=== PATIENT | male | born 1960 | race Two or more races ===

== ENCOUNTER 2017-06-04 13:24 | Inpatient (IN) | payer OTHER ==
[~2017-06-04] VITALS: Ht 172.7 cm; Wt 117.9 kg
--- NOTE | 2017-06-04 13:30 | NUR ---
PT BB SELF TO ER C/C LEFT HAND SWELLING & REDNESS SPREADING UP ARM x2 DAYS. A+OX4. SKIN WARM, DRY. AFEBRILE. RR EVEN, UNLABORED. VSS, NAD NOTED. AMBULATED TO ER BED 09 WITH STEADY GAIT. AWAITING PROVIDER EVAL AND FURTHER ORDERS. REPORT GIVEN TO BRITTA BOTELLO FOR JACOB.
--- NOTE | 2017-06-04 13:45 | NUR ---
PAKO HONG AT BEDSIDE FOR EVAL.
[2017-06-04] MEDS ORDERED: IRBE150T28 PO (13:54)
[2017-06-04] MEDS ORDERED: ATOR10TA PO (13:54)
[2017-06-04] MEDS ORDERED: METF500T4 PO (13:54)
[2017-06-04] MEDS ORDERED: INSU100I19 SQ (13:54)
[2017-06-04] MEDS ORDERED: IV NS 0.9% 1,000 ML BAG IV ONE ×3 (14:30→16:00)
[2017-06-04] MEDS ORDERED: PIPERACILLIN /TAZOBACTAM 3.375 G in IV D5W 50 ML IV ONE (14:30)
[2017-06-04] MEDS ORDERED: VANCOMYCIN 1 GM in IV D5W 250 ML IV ONE (14:30)
--- NOTE | 2017-06-04 14:46 | NUR ---
BLOOD DRAW COLLECTED BUT UNABLE TO START IV HARDSTICK. CALLED FOR MIDLINE MD AWARE
[2017-06-04 14:47] LABS: BASOPHILS # (AUTO) 0.3 /CMM (0.0-0.2); BASOPHILS % (AUTO) 1.8 % (0.0-2.0); EOSINOPHILS % (AUTO) 0.2 % (0.0-6.0); HEMATOCRIT 48 % (39-51); HEMOGLOBIN 15.9 g/dL (13.5-17.5); LYMPHOCYTES # (AUTO) 1.5 /CMM (0.8-4.8); LYMPHOCYTES % (AUTO) 7.9 % (20.0-44.0); MEAN CORPUSCULAR HEMOGLOBIN 32 PG (26.0-33.0); MEAN CORPUSCULAR HGB CONC 34 g/dl (31.0-36.0); MEAN CORPUSCULAR VOLUME 96 fL (80-96); MONOCYTES # (AUTO) 1.2 /CMM (0.1-1.30); MONOCYTES % (AUTO) 6.4 % (2.0-12.0); NEUTROPHILS # (AUTO) 15.7 /CMM (1.8-8.9); NEUTROPHILS % (AUTO) 83.7 % (43.0-81.0); PLATELET COUNT (AUTO) 188 /CMM (150-450); RDW COEFFICIENT OF VARIATION 12.6 (11.5-15.0); RED BLOOD CELL COUNT(AUTO) 4.96 MIL/uL (4.5-6.0); WHITE BLOOD COUNT (AUTO) 18.7 K/uL (4.3-11.0)
[2017-06-04 14:54] LABS: CALCIUM, SERUM 8.8 mg/dL (8.5-10.1); CREATININE 0.8 mg/dL (0.6-1.3)
[2017-06-04 15:00] LABS: ALBUMIN 2.9 g/dL (3.4-5.0); BILIRUBIN,DIRECT 0.2 mg/dL (0.0-0.2); BILIRUBIN,TOTAL 1.3 mg/dL (0.2-1.0); TOTAL PROTEIN, SERUM 7.3 g/dL (6.4-8.2)
[2017-06-04] MEDS ORDERED: IV NS 0.9% 1,000 ML IV PRN (16:37)
--- NOTE | 2017-06-04 16:39 | NUR ---
CALLED FOR REPORT TO ORLANDO CALLEJAS MS [address] SERNA
[2017-06-04 17:00] VITALS: BP 135/72
[2017-06-04] MEDS ORDERED: ONDANSETRON HCL/PF 4 MG/2 ML VIAL IVP PRN (17:00)
[2017-06-04] MEDS ORDERED: ZOLPIDEM TARTRATE 5 MG TABLET PO PRN (17:00)
[2017-06-04] MEDS ORDERED: ACETAMINOPHEN 325 MG TABLET PO PRN (17:00)
[2017-06-04] MEDS ORDERED: MAGNESIUM HYDROXIDE 30 ML UDC PO PRN (17:00)
[2017-06-04] MEDS ORDERED: MAG HYDROX/AL HYDROX/SIMETH 30 ML UDC PO PRN (17:00)
[2017-06-04] MEDS ORDERED: Z GUARD REMEDY 2 OZ OINT TP PRN (17:00)
[2017-06-04] MEDS ORDERED: DEXTROSE 50%-WATER 50 ML DISP.SYRIN IV PRN (17:00)
[2017-06-04] MEDS ORDERED: FEE PK DOSING 1 MIN EA MC ONE (17:24)
[2017-06-04] MEDS: CEFTRIAXONE 1 G in IV D5W 50 ML IV SCH (18:26)
[2017-06-04] MEDS: METFORMIN 500 MG TABLET PO SCH (18:26)
[2017-06-04] MEDS: BLOOD SUGAR DIAGNOSTIC 1 EACH STRIP VI SCH ×2 (18:26→22:41)
[2017-06-04] MEDS: INSULIN REGULAR, HUMAN 100 UNIT/ML 3 ML VIAL SQ PRN (18:38)
[2017-06-04] MEDS: HYDROCODONE/APAP 5/325MG 1 EACH TABLET PO PRN (18:49)
--- NOTE | 2017-06-04 19:00 | NUR ---
MS RN NOTES: 1700h REC'D REPORT FROM MOE BOTELLO RN. PT TRANSFERRED TO ROOM 113/1 VIA GURNEY, ABLE TO AMBULATE W/ STEADY GAIT. PT IS A/OX 4, C/O PAIN ON L ARM, 03/08. PT ORIENTED TO ROOM. INITIAL VS TAKEN. WOUND PHOTOS TAKEN & PLACED IN CHART. IV FLUIDS COMPLETED FOR SEPSIS PROTOCOL, REASSESSMENT DONE. PT KEPT WELL RESTED. NEEDS ATTENDED. BED KEPT LOW & IN LOCKED POS. CALL LIGHT PLACED W/IN REACH. ENDORSED TO PM RN FOR JACOB.
[2017-06-04 20:00] VITALS: BP 112/65
--- NOTE | 2017-06-04 20:00 | NUR ---
ms rn notes received pts on bed awake a/o x4 , family at bedside updated with pts current condition. no sob no distress no complain of pain at this time , v/s stable afebrile , all due meds given as ordered, call light within easy reach , kept pts clean dry and comfortable , all needs attended too ,kept pts clean dry and comfortable. will continue to monitor pts.
[2017-06-04] MEDS ORDERED: INSULIN DETEMIR 100 UNIT/ML CARTRIDGE SQ SCH (22:00)
--- NOTE | 2017-06-04 22:30 | NUR ---
MS RN NOTES BLOOD SUGAR FOR 10 PM IS 261MG/DL -20 UNITS OF LEVEMIR AND 6 UNITS OF REGULAR INSULIN GIVEN PER SLIDING SCALE , PTS ON PO DIET WILL CHECK BLOOD SUGAR AGAIN IN AM
[2017-06-04] MEDS: *INSULIN REGULAR(HUMULIN R)HUM 100 UNIT/ML VIAL SQ PRN (22:38)
[2017-06-05] MEDS: VANCOMYCIN 1 GM in IV D5W 250 ML IV SCH ×2 (03:29→16:29)
[2017-06-05 04:00] VITALS: BP_SYST 126; BP_SYST 140; BP_DIAS 77; BP_DIAS 81
[2017-06-05] MEDS: HYDROCODONE/APAP 5/325MG 1 EACH TABLET PO PRN (04:49)
--- NOTE | 2017-06-05 06:33 | NUR ---
ms rn notes pts remains on bed awake and responsive , continue on iv abx. no sob no distress noted , no significant change noted .will endorse to rn day shift for continuity of care.
[2017-06-05 06:35] LABS: BASOPHILS % (AUTO) 0.3 % (0.0-2.0); EOSINOPHILS # (AUTO) 0.1 /CMM (0.0-0.7); EOSINOPHILS % (AUTO) 0.6 % (0.0-6.0); HEMATOCRIT 41 % (39-51); HEMOGLOBIN 13.9 g/dL (13.5-17.5); LYMPHOCYTES # (AUTO) 1.3 /CMM (0.8-4.8); LYMPHOCYTES % (AUTO) 12.8 % (20.0-44.0); MEAN CORPUSCULAR HEMOGLOBIN 32 PG (26.0-33.0); MEAN CORPUSCULAR HGB CONC 34 g/dl (31.0-36.0); MEAN CORPUSCULAR VOLUME 95 fL (80-96); MONOCYTES # (AUTO) 0.8 /CMM (0.1-1.30); MONOCYTES % (AUTO) 7.5 % (2.0-12.0); NEUTROPHILS % (AUTO) 78.8 % (43.0-81.0); PLATELET COUNT (AUTO) 186 /CMM (150-450); RDW COEFFICIENT OF VARIATION 13.4 (11.5-15.0); RED BLOOD CELL COUNT(AUTO) 4.28 MIL/uL (4.5-6.0); WHITE BLOOD COUNT (AUTO) 10.1 K/uL (4.3-11.0)
[2017-06-05 07:13] LABS: CALCIUM, SERUM 7.8 mg/dL (8.5-10.1); CREATININE 0.6 mg/dL (0.6-1.3); PHOSPHORUS 2.2 mg/dL (2.5-4.9); POTASSIUM 3.7 mmol/L (3.5-5.1)
[2017-06-05] MEDS ORDERED: PANTOPRAZOLE 40 MG TABLET.DR PO SCH (07:30)
[2017-06-05] MEDS: BLOOD SUGAR DIAGNOSTIC 1 EACH STRIP VI SCH ×3 (07:30→16:50)
[2017-06-05] MEDS: *INSULIN REGULAR(HUMULIN R)HUM 100 UNIT/ML VIAL SQ PRN ×2 (07:32→12:20)
--- NOTE | 2017-06-05 07:51 | NUR ---
RN INITIAL NOTE REPORT RECEIVED FROM MASSIEL PM SHIFT FOR JACOB. PT A/O X4 PT MS. IV ANAHY MIDLINE NS @ 75 ML/HR PATENT AND INTACT. PT ON RA NO C/O SOB. WILL CONTINUE TO MONITOR CLOSELY. PAIN 0/10.
[2017-06-05] MEDS: METFORMIN 500 MG TABLET PO SCH ×2 (08:18→16:43)
[2017-06-05 08:20] VITALS: BP 127/69
[2017-06-05] MEDS ORDERED: IRBESARTAN (150MG) 150 MG TABLET PO SCH (09:00)
[2017-06-05] MEDS ORDERED: ATORVASTATIN 10 MG TABLET PO SCH (09:00)
[2017-06-05] MEDS ORDERED: ENOXAPARIN SODIUM 40 MG/0.4 ML DISP.SYRIN SQ SCH (10:00)
[2017-06-05 12:00] VITALS: BP 123/69
[2017-06-05 16:00] VITALS: BP 140/81
[2017-06-05] MEDS: K PHOS NEUTRAL 250 MG TABLET PO ONE ×2 (16:43→16:46)
[2017-06-05] MEDS: INSULIN REGULAR, HUMAN 100 UNIT/ML 3 ML VIAL SQ PRN (16:54)
[2017-06-05] MEDS ORDERED: LACTOBACILLUS RHAMNOSUS GG 1 EACH CAP.SPRINK PO SCH (17:00)
[2017-06-05] MEDS: CEFTRIAXONE 1 G in IV D5W 50 ML IV SCH (17:48)
--- NOTE | 2017-06-05 18:30 | NUR ---
DRY CURE WORKER NOTE PT TRANSFERRED TO [facility] PT STABLE. REPORT CALLED AND GIVEN TO NAT @ 5001. PT TRANSFERRED VIA AMBULANCE AND DC INSTRUCTIONS GIVEN TO EMT. EXIT CARE DONE AND EDUCATED PROVIDED . ID BAND REMOVED PT LEFT WITH BELONGINGS ON. ALL QUESTIONS AND CONCERNS ANSWERED. BELONGING LIST SIGNED. MIDLINE IN PLACE PATENT REPORTED AND INTACT. PHOTS TAKEN AND PUT IN CHART. PT CLEAN AND DRY.
== END 2017-06-05 18:34 | disposition short-term general hospital (02) | DRG 872 ==
LOC: ER 13:27 → MEDSG1 16:58
PROVIDERS: ADMIT Internal Medicine; ATTEND Internal Medicine
PROC: 05H533Z Insertion of Infusion Device into Right Subclavian Vein, Percutaneous Approach (ICD-10-PCS; principal; 2017-06-04)
DX: A41.9 Sepsis, unspecified organism (principal); E11.22 Type 2 diabetes mellitus with diabetic chronic kidney disease; E44.0 Moderate protein-calorie malnutrition; E11.65 Type 2 diabetes mellitus with hyperglycemia; L03.114 Cellulitis of left upper limb; E78.5 Hyperlipidemia, unspecified; K21.9 Gastro-esophageal reflux disease without esophagitis; Z87.891 Personal history of nicotine dependence; Z79.4 Long term (current) use of insulin; Z79.84 Long term (current) use of oral hypoglycemic drugs; I12.9 Hypertensive chronic kidney disease with stage 1 through stage 4 chronic kidney disease, or unspecified chronic kidney disease; N18.2 Chronic kidney disease, stage 2 (mild); E66.9 Obesity, unspecified; Z68.39 Body mass index [BMI] 39.0-39.9, adult
CPT/HCPCS: 36415; 73130-TC; 80048-TC; 80076-TC; 82962-TC; 83605-TC; 83735-TC; 84100-TC; 85025-TC; 87040-TC; 87081-TC; 93971-TC; A4606; J0696; J1650; J1815; J2543; J3370; J7030; J7050; J7060; Z7610